=== PATIENT | male | born 1980 | race Hispanic/Latino ===

== ENCOUNTER 2018-03-26 20:36 | Inpatient (IN) | payer BC ==
[~2018-03-26] VITALS: Ht 185.4 cm; Wt 136.1 kg
[2018-03-26] MEDS ORDERED: KETOROLAC TROMETHAMINE 30 MG/ML VIAL IV STA (20:57)
[2018-03-26] MEDS ORDERED: PANTOPRAZOLE 40 MG 10ML VIAL IV STA (20:57)
[2018-03-26] MEDS ORDERED: DICYCLOMINE HCL 20 MG/2 ML VIAL IM ONE (21:00)
[2018-03-26] MEDS ORDERED: ONDANSETRON HCL 4 MG ORAL DISINTEGRATING TAB PO ONE (21:00)
[2018-03-26 21:19] LABS: BASOPHILS % 0.4 % (0.0-1.0); EOSINOPHILS % 0.4 % (0.0-6.0); HEMATOCRIT 46.1 % (38.2-49.6); LYMPHOCYTES % 18.7 % (18.0-39.1); MEAN CORPUSCULAR HEMOGLOBIN 30.4 pg (28-32); MEAN CORPUSCULAR HGB CONC 34.7 g/dL (31-35); MEAN CORPUSCULAR VOLUME 87.6 fL (81-99); MONOCYTES # (AUTO) 0.6 (0.2-0.8); MONOCYTES % 5.3 % (4.4-11.3); NEUTROPHILS # (AUTO) 7.8 (2.1-6.9); NEUTROPHILS % 74.9 % (38.7-80.0); PLATELET COUNT 297 x10e3/uL (140-360); RED BLOOD COUNT 5.26 x10e6/uL (4.3-5.7)
[2018-03-26 21:41] LABS: ALANINE AMINOTRANSFERASE 23 IU/L (0-55); ALBUMIN 4.1 g/dL (3.5-5.0); ALKALINE PHOSPHATASE 72 IU/L (40-150); AMYLASE 70 U/L (25-125); ANION GAP 15.8 mmol/L (8-16); BLOOD UREA NITROGEN 11 mg/dL (7-26); BUN/CREATININE RATIO 11 (6-25); CALCIUM 9.7 mg/dL (8.4-10.2); CARBON DIOXIDE 23 mmol/L (22-29); CHLORIDE 105 mmol/L (98-107); CREATINE KINASE 94 IU/L (30-200); CREATININE, SERUM 0.96 mg/dL (0.72-1.25); EST GLOMERULAR FILTRATION RATE > 60 ML/MIN (60-); GLUCOSE 145 mg/dL (74-118); LIPASE 15 U/L (8-78); POTASSIUM 3.8 mmol/L (3.5-5.1); SODIUM 140 mmol/L (136-145)
[2018-03-26 22:10] LABS: BILIRUBIN,URINE NEGATIVE (NEGATIVE); CLARITY,URINE CLEAR (CLEAR); COLOR,URINE YELLOW (YELLOW); KETONES,URINE NEGATIVE (NEGATIVE); LEUKOCYTE ESTERASE ,URINE NEGATIVE (NEGATIVE); NITRITE,URINE NEGATIVE (NEGATIVE); PROTEIN,URINE DIPSTICK NEGATIVE (NEGATIVE); URINE UROBILINOGEN 0.2 mg/dL (0.2 - 1)
[2018-03-26 22:21] LABS: RBC,URINE 0-5 /HPF (0-5)
[2018-03-26 22:22] LABS: BACTERIA,URINE RARE /HPF; EPITHELIAL CELLS,URINE FEW /LPF; MUCUS,URINE FEW (RARE)
--- NOTE | 2018-03-26 22:33 | Diagnostic Imaging Report ---
EXAM: US GALLBLADDER DATE: 03/26/2018 12:00 AM INDICATION: , Right upper quadrant pain COMPARISON: None TECHNIQUE: Transverse and longitudinal yousif scale and color doppler sonographic images of the upper abdomen were obtained. FINDINGS: Overall study is degraded by poor visualization due to overlying bowel gas and body habitus. LIVER 17.8 cm in the right midclavicular line. Increased echogenicity, normal contour, no masses. GALLBLADDER Mildly distended containing multiple mobile gallstones with gallbladder wall thickening, 0.4 cm. No pericholecystic fluid. Negative sonographic Drake's sign. BILE DUCTS No intra nor extra-hepatic biliary dilation. Common bile duct measures 0.6 cm PANCREAS: Not well-visualized. RIGHT KIDNEY: 11.5 cm Echogenicity: Normal Collecting System: No hydronephrosis Stones: None Cyst/Mass: None VESSELS: Aorta: Not well-visualized Inferior Vena Cava: Not well-visualized Main Portal Vein: 1.3 cm, with hepatopetal flow. FREE FLUID: None IMPRESSION: Overall poor visualization. 1. Cholelithiasis with mild gallbladder wall thickening, but without pericholecystic fluid or Drake's sign. Findings are indeterminate for acute cholecystitis. If there is ongoing clinical concern, consider HIDA. 2. Hepatic steatosis. Signed by: Dr Winnie Cyr MD on 03/26/2018 10:29 PM
--- NOTE | 2018-03-26 22:37 | Diagnostic Imaging Report ---
CHEST SINGLE (PORTABLE), 03/26/2018 8:56 PM Technique: CHEST SINGLE (PORTABLE) Comparison: None available. Clinical history: Chest pain Findings: See Impression Impression: 1. Mildly enlarged cardiac silhouette, accentuated by portable technique. 2. Interstitial prominence likely artifact of technique. No consolidation. 3. No effusion or pneumothorax. Signed by: Dr Winnie Cyr MD on 03/26/2018 10:33 PM
[2018-03-26] MEDS ORDERED: HYDROMORPHONE 1MG/1ML INJ IV STA (23:54)
[2018-03-27] VITALS (8 sets, daily range): BP systolic 136–168; BP diastolic 72–118
[2018-03-27] MEDS ORDERED: HYDROMORPHONE 2MG/ML INJ IV ONE ×2 (00:30→01:30)
[2018-03-27] MEDS ORDERED: HYDRALAZINE HCL 20 MG/ML VIAL IV STA ×2 (01:15→02:16)
[2018-03-27] MEDS ORDERED: PIPER-TAZ 3.375 GM 50 ML IV STA (02:17)
[2018-03-27] MEDS ORDERED: SODIUM CHLORIDE 0.9% 1000ML 1,000 ML IV SCH (02:30)
[2018-03-27] MEDS ORDERED: SODIUM CHLORIDE 0.9% 1000ML 1,000 ML IV ONE (03:00)
[2018-03-27] MEDS ORDERED: CLONIDINE HCL 0.2 MG/24 HR 1 EA PATCH ONE (03:14)
[2018-03-27] MEDS ORDERED: CLONIDINE HCL 0.2 MG/24 HR 1 EA PATCH TOP ONE (03:15)
--- OUTSIDE RECORDS SUMMARY | 2018-03-27 04:29 | XMS REPORT ---
Author Author [facility] Address Unknown Phone Unavailable Care Team Providers Care Strategic Marketing Manager Name Role Phone PATTY PERALES Unavailable Unavailable Problems This patient has no known problems. Allergies, Adverse Reactions, Alerts This patient has no known allergies or adverse reactions. Medications This patient has no known medications. Encounters Start Date/Time End Date/Time Encounter Type Admission Type Attending [facility] Facility Care Department Encounter ID 2017-04-04 12:44:31 Inpatient [facility] [id number] 2017-04-03 08:49:59 Inpatient [facility] [id number] 2017-04-03 06:27:16 Inpatient [facility] [id number] 2017-04-03 04:36:18 Inpatient [facility] [id number] 2017-04-03 02:43:00 Inpatient [facility] [id number] 2017-06-19 00:00:00 2017-06-19 00:00:00 Outpatient [facility] [id number] 2017-05-31 00:00:00 2017-05-31 00:00:00 Outpatient [facility] [id number] 2017-05-03 14:30:07 2017-05-03 14:30:07 Outpatient [facility] [id number] 2017-05-03 12:43:22 2017-05-03 12:43:22 Outpatient [facility] [id number] 2017-04-14 00:00:00 2017-04-14 00:00:00 Outpatient [facility] [id number] 2017-04-10 09:47:49 2017-04-10 09:47:49 Outpatient [facility] [id number] 2017-04-03 03:14:15 2017-04-03 03:14:15 Emergency [facility] [id number] 2017-04-03 02:56:37 2017-04-03 02:56:37 Emergency [facility] [id number] 2017-04-03 02:55:40 2017-04-03 02:55:40 Emergency [facility] [id number] 2017-04-03 02:45:40 2017-04-03 02:45:40 Emergency [facility] [id number] Results Test Description Test Time Test Comments Text Results Atomic Results Result Comments CHEST SINGLE (PORTABLE) [place] [address] Patient Name: EZEQUIEL PARADA MR #: [id number] : 1980 Age/Sex: 37/M Req #: [id number] Adm Physician: Ordered by: PATTY PERALES MD Report #: [id number] Location: ER Room/Bed: Procedure: [id number] DX/CHEST SINGLE (PORTABLE) Exam Date: 03/26/18 Exam Time: 2156 REPORT STATUS: Signed CHEST SINGLE ( PORTABLE), 03/26/2018 8:56 PM Technique: CHEST SINGLE (PORTABLE) Comparison : None available. Clinical history: Chest pain Findings: See Impression Impression: 1. Mildly enlarged cardiac silhouette, accentuated by portable technique. 2. Interstitial prominence likely artifact of technique. No consolidation. 3. No effusion or pneumothorax. Signed by : Dr Lauro Cyr MD on 03/26/2018 10:33 PM Dictated By: LAURO CYR MD 32 Transcribed By: TREVOR on 03/26/182232 COPY TO: PATTY PERALES MD US GALLBLADDER [place] [address] Patient Name: EZEQUIEL PARADA MR #: [id number] : 1980 Age/Sex: 37/M Req #: [id number] Adm Physician: Ordered by: PATTY PERALES MD Report #: [id number] Location: ER Room/Bed: Procedure: [id number] US/US GALLBLADDER Exam Date: Exam Time: REPORT STATUS: Signed EXAM: US GALLBLADDER DATE: 03/26/2018 12:00 AM INDICATION: , Right upper quadrant pain COMPARISON: None TECHNIQUE: Transverse and longitudinal yousif scale and color doppler sonographic images of the upper abdomen were obtained. FINDINGS: Overall study is degraded by poor visualization due to overlying bowel gas and body habitus. LIVER 17.8 cm in the right midclavicular line. Increased echogenicity, normal contour, no masses. GALLBLADDER Mildly distended containing multiple mobile gallstones with gallbladder wall thickening, 0.4 cm. No pericholecystic fluid. Negative sonographic Drake's sign. BILE DUCTS No intra nor extra-hepatic biliary dilation. Common bile duct measures 0.6 cm PANCREAS: Not well-visualized. RIGHT KIDNEY: 11.5 cm Echogenicity: Normal Collecting System: No hydronephrosis Stones: None Cyst/Mass: None VESSELS: Aorta: Not well-visualized Inferior Vena Cava: Not well- visualized Main Portal Vein: 1.3 cm, with hepatopetal flow. FREE FLUID: None IMPRESSION: Overall poor visualization. 1. Cholelithiasis with mild gallbladder wall thickening, but without pericholecystic fluid or Drake' s sign. Findings are indeterminate for acute cholecystitis. If there is ongoing clinical concern, consider HIDA. 2. Hepatic steatosis. Signed by : Dr Lauro Cyr MD on 03/26/2018 10:29 PM Dictated By: LAURO CYR MD 28 Transcribed By: TREVOR on 03/26/182228 COPY TO: PATTY PERALES MD
[2018-03-27] MEDS ORDERED: HYDROMORPHONE 1MG/1ML INJ IV PRN (04:30)
[2018-03-27] MEDS ORDERED: ONDANSETRON HCL 4 MG ORAL DISINTEGRATING TAB PO PRN (04:30)
[2018-03-27] MEDS: SODIUM CHLORIDE 0.9% 1000ML 1,000 ML IV SCH ×2 (05:47→13:41)
[2018-03-27] MEDS ORDERED: PIPER-TAZ 3.375 GM 3.375 GM/100 ML BAG IV SCH (06:00)
[2018-03-27] MEDS ORDERED: MORPHINE SULFATE 5 MG/ML VIAL IV PRN (06:15)
[2018-03-27] MEDS ORDERED: MORPHINE SULFATE 2 MG/ML SYR IV PRN (06:30)
[2018-03-27] MEDS: HYDRALAZINE HCL 20 MG/ML VIAL IV PRN ×2 (08:32→18:13)
[2018-03-27] MEDS ORDERED: METOPROLOL TARTRATE INJ 1 MG/ML VIAL IV PRN (09:00)
[2018-03-27] MEDS ORDERED: METOPROLOL TARTRATE INJ 1 MG/ML VIAL ONE (09:05)
[2018-03-27 09:35] LABS: CREATINE KINASE 52 IU/L (30-200)
[2018-03-27] MEDS: METOPROLOL TARTRATE INJ 1 MG/ML VIAL IV PRN ×3 (09:35→18:22)
[2018-03-27] MEDS ORDERED: LORAZEPAM INJ 2 MG/ML VIAL IV PRN (09:45)
--- NOTE | 2018-03-27 10:08 | History and Physical ---
CHIEF COMPLAINT: Right upper quadrant abdominal pain associated with nausea and vomiting. HISTORY: The patient is a very pleasant 37-year-old male usually healthy, but for the past month or so he was having abdominal pain more so on the right and epigastric area. The patient's pain was off and on, but much improved at times. He did not . For the past few days, it was much worse with right upper quadrant pain. Patient came to the emergency room for evaluation. Gallbladder ultrasound showed cholelithiasis with gallbladder wall thickening. The patient also has Drake's sign with palpitation with pain. The patient is otherwise stable at this time. PAST MEDICAL HISTORY: Noncontributory. PAST SURGICAL HISTORY: Noncontributory. SOCIAL HISTORY: Patient does smoke. He is a social drinker. No recreational drugs. ALLERGIES: HYDROMORPHONE. HOME MEDICATIONS: None. PHYSICAL EXAMINATION VITAL SIGNS: Temperature is 98, blood pressure 199/126, pulse rate 56-102, respirations 18. GENERAL: The patient is not in acute distress. He is having pain. HEENT: Normocephalic and atraumatic. NECK: Supple grossly. PULMONARY: Diminished breath sounds. CARDIOVASCULAR: Regular rate and rhythm with tachycardia. ABDOMEN: Tenderness in the right upper quadrant with some guarding. EXTREMITIES: No cyanosis or edema. NEUROLOGICAL: No gross focal deficit. LABORATORY: Sodium 140, potassium 3.8, chloride 105, bicarb 23, BUN 11, creatinine 0.9, glucose is 145. Alkaline phosphatase 72, AST is 28, ALT 23, alkaline phosphatase 72. Urinalysis unremarkable. WBC is 10.4, hemoglobin 15, hematocrit 46, and platelets 297,000. IMPRESSION: Abdominal pain, right upper quadrant pain with nausea and vomiting. The patient has an abnormal gallbladder ultrasound. Could be secondary to cholecystitis. PLAN: Consultation with Dr. Cabezas. Consultation with Dr. Weston Sanchez. Continue with IV antibiotics. Pain control. IV fluids. N.p.o. except for possible medication if needed. Antiemetics. The patient is otherwise stable at this time. The patient is admitted for treatment. Please review the medication orders. Job#: [id number] OK
[2018-03-27] MEDS: MORPHINE SULFATE 2 MG/ML SYR IV PRN ×4 (12:00→21:52)
--- NOTE | 2018-03-27 12:31 | Diagnostic Imaging Report ---
PROCEDURE: MRI ABDOMEN/MRCP WITHOUT CONTRAST TECHNIQUE: Axial T1 in and out of phase, axial T2 fat sat, coronal, T2 with and without fat-sat, axial DWI, and ADC MR images of the abdomen were performed. No intravenous contrast was administered. Heavily T2-weighted MRCP images were also performed, including thick and thin slab ASSETT, 3-D breath hold FRFSE and 3-D reconstructions. COMPARISON: [facility], , US GALLBLADDER, 03/26/2018, 21:37. INDICATIONS: Abdomen pain FINDINGS: LACK OF GADOLINIUM DECREASES SENSITIVITY FOR DETECTION OF INTRA-ABDOMINAL PATHOLOGY. LOWER THORAX: Mild dependent atelectasis in the right lower lobe. LIVER: Normal hepatic size and contour. No hepatic signal abnormality. No focal T2 hyperintense lesions. BILIARY: No intra-or extrahepatic biliary ductal dilation. The common bile duct is visualized with at the birgit hepatis and pancreatic head, with normal caliber, measuring 0.4 cm. The proximal portion of the common bile duct is not visualized. Visualized portions show luminal contour, and tapering to the ampulla, without intraluminal filling defects or strictures. Increased T2 signal at the birgit hepatis surrounding the proximal portion of the common bile duct and proximal portion of right and left bile ducts, likely representing edema. Moderate gallbladder wall thickening, which measures approximately 0.6 cm. Multiple T2 hypointense stones are noted in the gallbladder lumen. Mild pericholecystic fluid. PANCREAS: No mass or ductal dilatation. SPLEEN: No splenomegaly. ADRENALS: No nodules. KIDNEYS: No hydronephrosis or mass in the imaged portion of the kidneys. PERITONEUM / RETROPERITONEUM: Trace free fluid surrounding the inferior tip of the right hepatic lobe (series 10, image 17, and series 9, image 35). LYMPH NODES: No upper abdominal lymphadenopathy. VESSELS: Normal flow voids are identified. BONES AND SOFT TISSUES: No abnormal bone marrow signal. IMPRESSION: 1. Cholelithiasis, with gallbladder wall thickening, pericholecystic fluid and trace adjacent ascites. This may reflect acute cholecystitis, in the appropriate clinical setting. 2. No evidence of choledocholithiasis in the visualized portions of the common bile duct. Although the proximal portion of the common bile duct is not visualized secondary to surrounding edema, no intra-or extrahepatic biliary ductal dilation is noted to suggest an obstructing stone. Terrance Guerin M.D. Dictated by: Terrance Guerin M.D. on 03/27/2018 at 12:32 Electronically approved by: Terrance Guerin M.D. on 03/27/2018 at 12:32
[2018-03-27] MEDS: KETOROLAC TROMETHAMINE 30 MG/ML VIAL IV PRN ×2 (13:45→19:50)
[2018-03-27 16:42] LABS: CREATINE KINASE 40 IU/L (30-200)
[2018-03-27] MEDS ORDERED: ACETAMINOPHEN 1000 MG/100 ML IV PRN (18:45)
[2018-03-27] MEDS: PIPER-TAZ 3.375 GM 100 ML IV SCH (21:09)
[2018-03-28] VITALS (7 sets, daily range): BP systolic 113–164; BP diastolic 55–98
[2018-03-28] MEDS: MORPHINE SULFATE 2 MG/ML SYR IV PRN ×5 (03:36→18:15)
[2018-03-28] MEDS: PIPER-TAZ 3.375 GM 100 ML IV SCH ×3 (04:30→19:38)
[2018-03-28 06:16] LABS: BASOPHILS # (AUTO) 0.1 (0.0-0.1); BASOPHILS % 0.2 % (0.0-1.0); EOSINOPHILS % 0.1 % (0.0-6.0); HEMATOCRIT 43.9 % (38.2-49.6); HEMOGLOBIN 14.8 g/dL (14.0-18.0); LYMPHOCYTES # (AUTO) 1.5 (1.0-3.2); LYMPHOCYTES % 6.6 % (18.0-39.1); MEAN CORPUSCULAR HEMOGLOBIN 30.3 pg (28-32); MEAN CORPUSCULAR HGB CONC 33.7 g/dL (31-35); MEAN CORPUSCULAR VOLUME 89.8 fL (81-99); MONOCYTES # (AUTO) 1.9 (0.2-0.8); MONOCYTES % 8.2 % (4.4-11.3); NEUTROPHILS % 84.3 % (38.7-80.0); PLATELET COUNT 229 x10e3/uL (140-360); RED BLOOD COUNT 4.89 x10e6/uL (4.3-5.7); RED CELL DISTRIBUTION WIDTH 13.6 % (11.7-14.4)
[2018-03-28 06:42] LABS: ALANINE AMINOTRANSFERASE 14 IU/L (0-55); ALBUMIN/GLOBULIN RATIO 0.8 (0.8-2.0); ALKALINE PHOSPHATASE 51 IU/L (40-150); AMYLASE 47 U/L (25-125); BLOOD UREA NITROGEN 12 mg/dL (7-26); BUN/CREATININE RATIO 13 (6-25); CALCIUM 9.1 mg/dL (8.4-10.2); CARBON DIOXIDE 27 mmol/L (22-29); CHLORIDE 103 mmol/L (98-107); CREATINE KINASE 38 IU/L (30-200); CREATININE, SERUM 0.96 mg/dL (0.72-1.25); EST GLOMERULAR FILTRATION RATE > 60 ML/MIN (60-); GLUCOSE 101 mg/dL (74-118); LIPASE 18 U/L (8-78); SODIUM 138 mmol/L (136-145)
[2018-03-28 10:40] LABS: ANISOCYTOSIS SLIGHT; LYMPHOCYTES % (MANUAL) 9 % (19-48); MONOCYTES % (MANUAL) 6 % (3.4-9.0); NEUTROPHILS % (MANUAL) 83 % (40-74); PLATELET ESTIMATE ADEQUATE; PLATELET MORPHOLOGY COMMENT NORMAL; RBC MORPHOLOGY COMMENT NORMAL
[2018-03-28] MEDS ORDERED: BUPIVACAINE 0.25%/EPI 30ML SDV INJ ONE (10:50)
--- NOTE | 2018-03-28 13:01 | Consultation ---
DATE OF CONSULTATION: March 27, 2018 HISTORY: This is a 37-year-old male, who presented to the hospital because of abdominal pain mainly in the epigastric, right upper quadrant area, radiating towards the back. Patient's workup so far revealed that he has gallstone by ultrasound and liver enzymes normal. He also has fatty liver on the ultrasound. He did have an MRCP earlier, which again showed gallstones, but the normal bile ducts, and his liver enzymes, however, are normal. He has a history of heavy alcohol use. His other medical problem is significant for otherwise is unremarkable. ALLERGIES: NONE. SOCIAL HISTORY: Again, heavy alcohol use. FAMILY HISTORY: Noncontributory. REVIEW OF SYSTEMS: Denies any chest pain. Denies any . Denies any shortness of breath. Denies any dysphagia or odynophagia. Denies any dysuria, hematuria or syncopal episode. EXAM GENERAL: The patient is awake, alert, appears to be stable and not in any acute distress at this point. VITAL SIGNS: Afebrile currently with stable vital signs. HEENT: Normocephalic, atraumatic. Sclerae anicteric. NECK: Supple. HEART: Sounds regular. ABDOMEN: Soft. There is tenderness significantly in the epigastric and right upper quadrant area. There is no rebound or mass. EXTREMITIES: No cyanosis, clubbing. LAB VALUE: CMP is okay. CBC okay. Ultrasound showed gallstones with fatty liver. MRCP is negative. ASSESSMENT: Abdominal pain likely secondary to gallstones. There are no signs of any stone in the bile duct. normal. History of alcohol use. RECOMMENDATIONS: Follow liver tests. Patient will need to have cholecystectomy and recommend alcohol intake. Job#: [id number] CQ cc:MD DAIANA KING MD
[2018-03-28] MEDS ORDERED: PROMETHAZINE HCL (IM) 25 MG/ML VIAL IV PRN (13:30)
--- NOTE | 2018-03-28 14:01 | Operative Report ---
DATE OF PROCEDURE: March 28, 2018 PREOPERATIVE DIAGNOSIS: Acute cholecystitis and cholelithiasis. POSTOPERATIVE DIAGNOSIS: Acute gangrenous cholecystitis and cholelithiasis. OPERATION PERFORMED: Laparoscopic cholecystectomy. ROAD MACHINERY INSPECTOR: Dr. Gray Cabezas. ANESTHESIA: General endotracheal. COMPLICATIONS: None. ESTIMATED BLOOD LOSS: Minimal. DESCRIPTION OF PROCEDURE: With the patient lying in bed in the supine position under good general endotracheal anesthesia, the abdomen was prepped with Betadine solution and draped in the usual manner. A Veress needle was introduced into the umbilicus. A pneumoperitoneum was established without any difficulty. An 11 mm trocar was placed into the umbilicus, and a 10 mm video laparoscope was placed into the intra-abdominal cavity. Under direct vision, three 5 mm trocars were placed in the right subcostal region and an extra 5 mm trocar was placed in the left upper abdomen to be able to retract the redundant omentum and transverse colon. Laparoscopy at this point revealed the gallbladder to be totally covered up with omental adhesions. Once the omentum was peeled away from the gallbladder, it quickly became evident that this was an acute gallbladder where the top of the gallbladder already had some gangrenous changes. The gallbladder was thick-walled and distended and had to be decompressed with a needle in order to be able to grasp it. After this was done, all of the adhesions at the neck of the gallbladder were then slowly and carefully taken down. The peritoneum overlying the neck of the gallbladder was then opened, and the cystic duct was identified. The cystic duct was followed to its junction with the common duct. The cystic duct was then circumferentially dissected away from the common duct, doubly clipped and divided. The cystic artery had an anterior and a posterior branch, and both of these were individually clipped and divided. The gallbladder was then slowly and carefully taken off of the liver bed using the cautery scissors. There was a lot of thickening, edema of the gallbladder bed with some gangrenous changes at the top of the gallbladder. Nonetheless, the gallbladder was totally removed from the liver bed and perfect hemostasis was ascertained. The gallbladder was placed into a bag and removed through the umbilicus after enlarging the incision to allow for the passage of the rather inflamed gallbladder. After this was done, video laparoscopy was then again carried out. All of the excess fluid was aspirated. Perfect hemostasis was ascertained. The pneumoperitoneum was evacuated, and all the trocars were removed under direct vision. The midline fascia at the umbilicus was then closed with a [id number] of 0 Vicryl. All layers were infiltrated on the way out with solution of 1/4 percent Marcaine. Subcutaneous tissue was approximated with 3-0 Vicryl, and the skin was closed with subcuticular 5-0 Vicryl. Benzoin, Steri-Strips and Band-Aids were applied. The sponge, lap and needle count was correct. The patient tolerated the procedure well and returned to the recovery room in stable condition. Job#: [id number] EV
[2018-03-28] MEDS: PANTOPRAZOLE 40 MG 10ML VIAL IV SCH (15:16)
[2018-03-28] MEDS: DEXTROSE 5%/LACTATED RINGERS 1,000 ML IV SCH ×2 (15:16→21:19)
[2018-03-28] MEDS ORDERED: LIDOCAINE HCL 2% LOCAL INJ 5 ML SDV VIAL INJ ONE (18:20)
[2018-03-28] MEDS ORDERED: ROCURONIUM BROMIDE 10 MG/ML 5ML VIAL ONE (18:20)
[2018-03-28] MEDS ORDERED: ONDANSETRON HCL INJ 2 MG/ML VIAL ONE (18:20)
[2018-03-28] MEDS ORDERED: ACETAMINOPHEN 1000 MG/100 ML IV ONE (18:20)
[2018-03-28] MEDS ORDERED: DEXAMETHASONE SOD PHOS INJ 4 MG/ML VIAL ONE (18:20)
[2018-03-28] MEDS ORDERED: NEOSTIGMINE 5 MG/5ML SYR ONE (18:20)
[2018-03-28] MEDS ORDERED: SEVOFLURANE INHAL SOLN 250 ML PEN BTL ONE (18:20)
[2018-03-28] MEDS ORDERED: GLYCOPYRROLATE INJ 1MG/ 5 ML SYR ONE (18:20)
[2018-03-28] MEDS ORDERED: PROPOFOL IV EMULSION 10 MG/ML 20 ML VIAL ONE (18:20)
[2018-03-28] MEDS ORDERED: MIDAZOLAM HCL 2 MG/2 ML VIAL ONE (18:54)
[2018-03-28] MEDS ORDERED: FENTANYL CITRATE/PF 100MCG/2 ML INJ ONE (18:54)
[2018-03-28] MEDS: HYDROCODONE/APAP 7.5MG-325MG 1 EA TAB PO PRN (21:34)
[2018-03-29] MEDS: PIPER-TAZ 3.375 GM 100 ML IV SCH ×3 (03:14→19:39)
[2018-03-29] MEDS: HYDROCODONE/APAP 7.5MG-325MG 1 EA TAB PO PRN ×3 (03:15→19:15)
[2018-03-29 04:00] VITALS: BP 121/58
[2018-03-29 07:16] LABS: BASOPHILS % 0.2 % (0.0-1.0); EOSINOPHILS # (AUTO) 0.1 (0.0-0.4); EOSINOPHILS % 0.5 % (0.0-6.0); HEMATOCRIT 38.6 % (38.2-49.6); HEMOGLOBIN 12.9 g/dL (14.0-18.0); LYMPHOCYTES # (AUTO) 1.7 (1.0-3.2); LYMPHOCYTES % 13.1 % (18.0-39.1); MEAN CORPUSCULAR HEMOGLOBIN 30.3 pg (28-32); MEAN CORPUSCULAR HGB CONC 33.4 g/dL (31-35); MEAN CORPUSCULAR VOLUME 90.6 fL (81-99); MONOCYTES # (AUTO) 0.9 (0.2-0.8); MONOCYTES % 6.8 % (4.4-11.3); NEUTROPHILS # (AUTO) 10.1 (2.1-6.9); PLATELET COUNT 217 x10e3/uL (140-360); RED BLOOD COUNT 4.26 x10e6/uL (4.3-5.7); RED CELL DISTRIBUTION WIDTH 13.5 % (11.7-14.4)
[2018-03-29 08:00] VITALS: BP 100/71
[2018-03-29 08:51] VITALS: BP 100/71
[2018-03-29] MEDS: DEXTROSE 5%/LACTATED RINGERS 1,000 ML IV SCH ×2 (09:15→16:13)
[2018-03-29] MEDS: MORPHINE SULFATE 2 MG/ML SYR IV PRN ×3 (10:15→22:23)
[2018-03-29 11:59] VITALS: BP 103/52
[2018-03-29] MEDS: PANTOPRAZOLE 40 MG 10ML VIAL IV SCH (12:43)
[2018-03-29 16:06] VITALS: BP 126/74
[2018-03-29 19:57] VITALS: BP 136/72
[2018-03-30] VITALS: BP 135/64
[2018-03-30 02:30] VITALS: BP 135/64
[2018-03-30] MEDS: PIPER-TAZ 3.375 GM 100 ML IV SCH (03:55)
[2018-03-30] MEDS: DEXTROSE 5%/LACTATED RINGERS 1,000 ML IV SCH (03:55)
[2018-03-30] MEDS: HYDROCODONE/APAP 7.5MG-325MG 1 EA TAB PO PRN ×2 (03:56→10:48)
[2018-03-30 04:00] VITALS: BP 138/66
[2018-03-30 07:08] LABS: BASOPHILS # (AUTO) 0.1 (0.0-0.1); BASOPHILS % 0.6 % (0.0-1.0); EOSINOPHILS # (AUTO) 0.2 (0.0-0.4); EOSINOPHILS % 2.7 % (0.0-6.0); HEMATOCRIT 37.7 % (38.2-49.6); HEMOGLOBIN 12.5 g/dL (14.0-18.0); LYMPHOCYTES # (AUTO) 2.8 (1.0-3.2); MEAN CORPUSCULAR HEMOGLOBIN 29.8 pg (28-32); MEAN CORPUSCULAR HGB CONC 33.2 g/dL (31-35); MONOCYTES # (AUTO) 0.6 (0.2-0.8); MONOCYTES % 7.5 % (4.4-11.3); NEUTROPHILS # (AUTO) 4.1 (2.1-6.9); NEUTROPHILS % 53.1 % (38.7-80.0); PLATELET COUNT 221 x10e3/uL (140-360); RED BLOOD COUNT 4.19 x10e6/uL (4.3-5.7); RED CELL DISTRIBUTION WIDTH 13.3 % (11.7-14.4)
[2018-03-30 07:30] LABS: ANION GAP 10.6 mmol/L (8-16); BLOOD UREA NITROGEN 13 mg/dL (7-26); BUN/CREATININE RATIO 15 (6-25); CALCIUM 8.8 mg/dL (8.4-10.2); CARBON DIOXIDE 30 mmol/L (22-29); CHLORIDE 100 mmol/L (98-107); CREATININE, SERUM 0.86 mg/dL (0.72-1.25); EST GLOMERULAR FILTRATION RATE > 60 ML/MIN (60-); GLUCOSE 99 mg/dL (74-118); POTASSIUM 3.6 mmol/L (3.5-5.1); SODIUM 137 mmol/L (136-145)
[2018-03-30 08:14] VITALS: BP 136/66
[2018-03-30 10:09] VITALS: BP 136/66
--- NOTE | 2018-03-30 10:22 | Discharge Summary ---
PAINTER TOUCH UP: Dr. Weston Sanchez and Dr. Matt Cabezas. FINAL DIAGNOSES 1. Acute cholecystitis, status post laparoscopic cholecystectomy. 2. Hypertensive urgency secondary to pain and infection. 3. Status post sepsis without shock. 4. Leukocytosis and fever, resolved. SUMMARY: Patient is a 37-year-old male who came in very sick. The patient had acute cholecystitis associated with sepsis. Blood pressure was elevated due to stress, pain and infection. He came in with a WBC of 22.6. WBC 7.7 now and normalized. He was dehydrated with hemoglobin and hematocrit of 16 and 46.1. On chemistry panel, the patient is stable. He had dehydration, sepsis and infection. Patient was very distressed. Multiple blood pressure medications were given. The patient is doing much better now. He is stable. He is tolerating oral intake. The patient will be discharged home today. He will continue with medications as follows: 1. Celebrex 200 mg 1 tablet b.i.d. p.r.n. for pain. 2. Zofran ODT 4 mg sublingual q.4 h. p.r.n. for nausea and vomiting. 3. Questran 1 package q.8 h. p.r.n. for diarrhea. 4. Levaquin 500 mg daily for 5 days. The patient is instructed to have a bland diet. The patient will follow up next week with Dr. Matt Cabezas for postop care. He may follow up with me in approximately 1-2 weeks if needed. Job#: [id number] MERON
[2018-03-30] MEDS ORDERED: CELEBREX100 MG PO (11:32)
[2018-03-30] MEDS ORDERED: ZOFRAN ODT4 MG (11:32)
[2018-03-30] MEDS ORDERED: QUESTRAN PACKET4 GM PO (11:33)
[2018-03-30] MEDS ORDERED: LEVAQUIN500 MG PO (11:33)
== END 2018-03-30 12:02 | disposition home or self-care (01) | DRG 854 ==
LOC: ER 20:41 → ERHOLD 03-27 04:18 → IMCU 03-27 11:23 → MED/SURG3 03-28 20:54
PROVIDERS: ADMIT Internal Medicine; ATTEND Internal Medicine
PROC: 0FT44ZZ Resection of Gallbladder, Percutaneous Endoscopic Approach (ICD-10-PCS; principal; 2018-03-28 11:30)
DX: A41.9 Sepsis, unspecified organism (principal); K80.00 Calculus of gallbladder with acute cholecystitis without obstruction; E86.0 Dehydration; I16.0 Hypertensive urgency; K76.0 Fatty (change of) liver, not elsewhere classified
CPT/HCPCS: 36415; 71045; 74181; 76705; 80048; 80053; 81001; 82150; 82550; 82553; 83690; 84484; 85025; 88304; 93005; 96367; 96375; 96376; 99285; C1766; J0360; J0500; J1100; J1885; J2001; J2060; J2250; J2270; J2405; J2543; J7030; J7120

== ENCOUNTER 2020-08-31 09:52 | Inpatient (IN) | payer SELFPAY ==
[2020-08-31] VITALS (11 sets, daily range): BP systolic 137–175; BP diastolic 81–108
[~2020-08-31] VITALS: Ht 180.3 cm; Wt 89.8 kg
[~2020-08-31 09:52] MED LIST: CELEBREX100 MG PO; LEVAQUIN500 MG PO; QUESTRAN PACKET4 GM PO; ZOFRAN ODT4 MG
--- OUTSIDE RECORDS SUMMARY | 2020-08-31 10:14 | XMS REPORT | Continuity of Care Document ---
Author Author Amanda Cruz [employer] EZEQUIEL Agustin Organization [employer] Address Unknown Phone Unavailable Care Team Providers Care Accounts Payable Processor Name Role Phone [employer] Unavailable Un available Problems Problem Status Onset Date Classification Date Reported Comments Source Bimalleolar fracture of lower leg 12/04/2019 12/06/2019 [facility] Medications Medication Details Route Status Patient Instructions Ordering Provider Order Date Source Dilaudid 0.5 mg = 0.5 mL, Inje ction, IV Push, q5min PRN for pain mild-moderate (1-6), order duration: 2 doses, first dose 12/04/19 9:30:00 INSULATION NOZZLEMAN, stop date Limited # of times Inactive 12/04/2019 [facility] promethazine IVPB 12.5 mg, IV Piggyback, Once PRN for nausea/vomiting, infuse over 15 minutes, first dose 12/04/19 9:19:00 INSULATION NOZZLEMAN Inactive 12/04/2019 [facility] Demerol HCl 12.5 mg = 0.5 mL, Injection, IV Push, q5min PRN for Pain Mild (1-3), order duration: 4 doses, first dose 12/04/19 9:19:00 INSULATION NOZZLEMAN, stop date Limited # of times Inactive 12/04/2019 [facility] Morphine 1 mg = 0.1 mL, Inject ion, IV Push, q5min PRN for Pain Moderate (4-6), order duration: 5 doses, first dose 12/04/19 9:19:00 INSULATION NOZZLEMAN, stop date Limited # of times Inactive 12/04/2019 [facility] Misc Medication 800 mL, Soln-I V, IV, Once, first dose 12/04/19 9:14:00 INSULATION NOZZLEMAN, stop date 12/04/19 9:14:00 INSULATION NOZZLEMAN Inactive 12/04/2019 [facility] morphine 4 mg = 2 mL, Injectio n, IV, Once, first dose 12/04/19 9:12:00 INSULATION NOZZLEMAN, stop date 12/04/19 9:12:00 INSULATION NOZZLEMAN Inactive 12/04/2019 [facility] ketorolac 30 mg = 1 mL, Inject ion, IV, Once, first dose 12/04/19 8:44:00 INSULATION NOZZLEMAN, stop date 12/04/19 8:44:00 INSULATION NOZZLEMAN Inactive 12/04/2019 [facility] ondansetron 4 mg = 2 mL, Injec tion, IV, Once, first dose 12/04/19 8:13:00 INSULATION NOZZLEMAN, stop date 12/04/19 8:13:00 INSULATION NOZZLEMAN Inactive 12/04/2019 [facility] dexamethasone 4 mg = 1 mL, Inj ection, IV, Once, first dose 12/04/19 8:11:00 INSULATION NOZZLEMAN, stop date 12/04/19 8:11:00 INSULATION NOZZLEMAN Inactive 12/04/2019 [facility] fentaNYL 100 mcg = 2 mL, Injec tion, IV, Once, first dose 12/04/19 7:35:00 INSULATION NOZZLEMAN, stop date 12/04/19 7:35:00 INSULATION NOZZLEMAN Inactive 12/04/2019 [facility] rocuronium 50 mg = 5 mL, Injec tion, IV, Once, first dose 12/04/19 7:10:00 INSULATION NOZZLEMAN, stop date 12/04/19 7:10:00 INSULATION NOZZLEMAN Inactive 12/04/2019 [facility] propofol 200 mg = 20 mL, Emuls ion, IV, Once, first dose 12/04/19 7:10:00 INSULATION NOZZLEMAN, stop date 12/04/19 7:10:00 INSULATION NOZZLEMAN Inactive 12/04/2019 [facility] fentaNYL 100 mcg = 2 mL, Injec tion, IV, Once, first dose 12/04/19 7:10:00 INSULATION NOZZLEMAN, stop date 12/04/19 7:10:00 INSULATION NOZZLEMAN Inactive 12/04/2019 [facility] lidocaine 40 mg = 2 mL, Inject ion, IV, Once, first dose 12/04/19 7:10:00 INSULATION NOZZLEMAN, stop date 12/04/19 7:10:00 INSULATION NOZZLEMAN Inactive 12/04/2019 [facility] Acetaminophen 325 MG / Hydrocodone Radha trate 10 MG Oral Tablet [[place] 10/325] 1 tabs, Oral, q4hr, PRN for pain, # 30 t abs, 0 Refill(s), Pharmacy: [facility]/pharmacy #[id number], ankle surgery Active 12/04/2019 [facility] ceFAZolin 2 gm, Powder-Inj, IV , Once, first dose 12/04/19 7:05:00 INSULATION NOZZLEMAN, stop date 12/04/19 7:05:00 INSULATION NOZZLEMAN Inactive 12/04/2019 [facility] ropivacaine 150 mg = 30 mL, In jection, Nerve Block, Once, first dose 12/04/19 6:42:00 INSULATION NOZZLEMAN, stop date 12/04/19 6:42:00 INSULATION NOZZLEMAN Inactive 12/04/2019 [facility] fentaNYL 100 mcg = 2 mL, Injec tion, IV, Once, first dose 12/04/19 6:42:00 INSULATION NOZZLEMAN, stop date 12/04/19 6:42:00 INSULATION NOZZLEMAN Inactive 12/04/2019 [facility] midazolam 2 mg = 2 mL, Injecti on, IV, Once, first dose 12/04/19 6:42:00 INSULATION NOZZLEMAN, stop date 12/04/19 6:42:00 INSULATION NOZZLEMAN Inactive 12/04/2019 [facility] Cefazolin 2 gm, IV Piggyback, Once, infuse over 30 minutes, first dose 12/04/19 6:00:00 INSULATION NOZZLEMAN, stop date 12/04/19 6:00:00 INSULATION NOZZLEMAN, Prophylaxis Inactive 12/04/2019 [facility] Pain Ease topical spray 1 spra ys, [place], TOP, Once, first dose 12/04/19 6:00:00 INSULATION NOZZLEMAN, stop date 12/04/19 6:00:00 INSULATION NOZZLEMAN, Apply topically for 4 - 10 seconds from a distance of 3 - 7 inches from the procedure site Inactive 12/04/2019 [facility] LR 1,000 mL 1,000 mL, IV, 100 mL/hr, start date 12/04/19 5:52:00 INSULATION NOZZLEMAN, For Adults Inactive 12/04/2019 [facility] Allergies, Adverse Reactions, Alerts Substance Category Reaction Severity Reaction type Status Date Reported Comments Source No Known Medication Allergies Assertion Drug aller gy [facility] Immunizations No Data Provided for This Section Results No Data Provided for This Section Pathology Reports No Data Provided for This Section Diagnostic Reports No Data Provided for This Section Consultation Notes No Data Provided for This Section Discharge Summaries No Data Provided for This Section History and Physicals No Data Provided for This Section Vital Signs Vital Sign Value Date Comments Source Respitory Rate 17 12/04/2019 [facility] Heart Rate 93 12/04/2019 [facility] Systolic (mm Hg) 161 12/04/2019 [facility] Diastolic (mm Hg) 79 12/04/2019 [facility] Respitory Rate 17 12/04/2019 [facility] Heart Rate 94 12/04/2019 [facility] Systolic (mm Hg) 156 12/04/2019 [facility] Diastolic (mm Hg) 79 12/04/2019 [facility] Heart Rate 97 12/04/2019 [facility] Respitory Rate 17 12/04/2019 [facility] Systolic (mm Hg) 159 12/04/2019 [facility] Diastolic (mm Hg) 75 12/04/2019 [facility] Temperature Oral (F) 36.3 Larisa 12/04/2019 [facility] Peripheral Pulse Rate 93 12/04/2019 [facility] Peripheral Pulse Rate 92 12/04/2019 [facility] Temperature Oral (F) 36.2 Larisa 12/04/2019 [facility] Peripheral Pulse Rate 91 12/04/2019 [facility] Weight Measured 142 12/04/2019 [facility] Height 180 cm 12/04/2019 [facility] Encounters Location Location Details Encounter Type Encounter Number Reason For Visit Attending Provider ADM Date DC Date Status Source KW KW Ou tpatient [id number] Shan sarmiento 12/04/2019 12/04/2019 [facility] [id number] Shan Perez 12/04/2019 12/04/2019 [facility] Procedures Procedure Code Date Perfomer Comments Source right eye stitches 11/20/2016 [facility] Assessment and Plan No Data Provided for This Section Plan of Care No Data Provided for This Section Social History Social History Date Source Social History TypeResponse Smoking Status 4 or less cigarettes(less than 1/4 pack) /day in last 30 days; Type: Cigarettes entered on: 11/28/19 11/28/2019 [facility] Family History No Data Provided for This Section Advance Directives No Data Provided for This Section Functional Status No Data Provided for This Section
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
--- OUTSIDE RECORDS SUMMARY | 2020-08-31 10:15 | XMS REPORT | Continuity of Care Document ---
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 [facility] CenterUrine Vfrskaxs0521-39-12 22:22:00* Test Item Value Reference Range Interpretation Comments Urine Bacteria (test code = 36270-9) RARE NONE [facility] CenterUrine Epithelial Ywult4720-29-39 22:22:00 * Test Item Value Reference Range Interpretation Comments Urine Epithelial Cells (test code = 95850-7) FEW NONE [facility] CenterUrine Giznn9948-16-19 22:22:00* Test Item Value Reference Range Interpretation Comments Urine Mucus (test code = 8247-9) FEW RARE H [facility] CenterUrine Zkspy8749-48-39 22:10:00* Test Item Value Reference Range Interpretation Comments Urine Color (test code = 5778-6) YELLOW YELLOW [facility] CenterUrine Hiixzdh4182-73-40 22:10:00* Test Item Value Reference Range Interpretation Comments Urine Clarity (test code = 17288-7) CLEAR CLEAR [facility] CenterUrine Specific Qnfzhzj9523-53-39 22:10:00 * Test Item Value Reference Range Interpretation Comments Urine Specific [place] (test code = 5811-5) 1.030 1.010-1.02 5 H [facility] CenterUrine vV4390-67-80 22:10:00* Test Item Value Reference Range Interpretation Comments Urine pH (test code = 68327-5) 5 5-7 [facility] CenterUrine Leukocyte Aqxjdbli6754-78-74 22:10:00* Test Item Value Reference Range Interpretation Comments Urine Leukocyte Esterase (test code = 5799-2) NEGATIVE NEGATIVE [facility] CenterUrine Ctbjgcy1907-97-61 22:10:00* Test Item Value Reference Range Interpretation Comments Urine Nitrite (test code = 05193-1) NEGATIVE NEGATIVE [facility] CenterUrine Ssyheiq3918-57-22 22:10:00* Test Item Value Reference Range Interpretation Comments Urine Protein (test code = 5804-0) NEGATIVE NEGATIVE [facility] CenterUrine Glucose (UA)2018-03-26 22:10:00* Test Item Value Reference Range Interpretation Comments Urine Glucose (UA) (test code = 2349-9) NEGATIVE NEGATIVE [facility] CenterUrine Ehbtlrf3541-36-81 22:10:00* Test Item Value Reference Range Interpretation Comments Urine Ketones (test code = 99155-4) NEGATIVE NEGATIVE [facility] CenterUrine Koyqtlomgfkx4762-51-31 22:10:00* Test Item Value Reference Range Interpretation Comments Urine Urobilinogen (test code = 75969-8) 0.2 0.2-1 [facility] CenterUrine Lhjtwobxd4759-60-50 22:10:00* Test Item Value Reference Range Interpretation Comments Urine Bilirubin (test code = 1978-6) NEGATIVE NEGATIVE [facility] CenterUrine Fhvyw8915-72-60 22:10:00* Test Item Value Reference Range Interpretation Comments Urine Blood (test code = 59433-2) NEGATIVE NEGATIVE [facility] CenterMRI MRCP WO [place] [address] Patient Name: EZEQUIEL PARADA MR #: [id number] : 1980 Age/Sex: 37/M Req #: [id number] Adm Physician: MARY MCCLURE MD Ordered by: MARY MCCLURE MD Report #: [id number] Location: [facility] Room/Bed: [place] [address] Procedure: [id number] MRI/MRI MRCP WO Exam Date: Exam Time: REPORT STATUS: Sig karina PROCEDURE: MRI ABDOMEN/MRCP WITHOUT CONTRAST TECHNIQUE: Axial T1 in and out of phase, axial T2 fat sat, coronal, T2 with and without fat-sat, ax ial DWI, and ADC MR images of the abdomen were performed. No intravenous cont rast was administered. Heavily T2-weighted MRCP images were also performed, in cluding thick and thin slab ASSETT, 3-D breath hold FRFSE and 3-D reconstruct ions. COMPARISON: Patients [facility], US, US GALLBLADDER, 03/26/2018, 21:37. INDICATIONS: Abdomen pain FINDINGS: LACK OF GADOLINIUM D ECREASES SENSITIVITY FOR DETECTION OF INTRA-ABDOMINAL PATHOLOGY. LOWER THORAX: Mild dependent atelectasis in the right lower lobe. LIVER: Normal hepa tic size and contour. No hepatic signal abnormality. No focal T2 hyperintense lesions. BILIARY: No intra-or extrahepatic biliary ductal dilation. The commo n bile duct is visualized with at the birgit hepatis and pancreatic head, w ith normal caliber, measuring 0.4 cm. The proximal portion of the common bile duct is not visualized. Visualized portions show luminal contour, and taperi ng to the ampulla, without intraluminal filling defects or strictures. Incr eased T2 signal at the birgit hepatis surrounding the proximal portion of the common bile duct and proximal portion of right and left bile ducts, likely re presenting edema. Moderate gallbladder wall thickening, which measures approxi mately 0.6 cm. Multiple T2 hypointense stones are noted in the gallbladder anders men. Mild pericholecystic fluid. PANCREAS: No mass or ductal dilatation. SPLEEN: No splenomegaly. ADRENALS: No nodules. KIDNEYS: No hydronephrosis o r mass in the imaged portion of the kidneys. PERITONEUM / RETROPERITONEUM: Trace free fluid surrounding the inferior tip of the right hepatic lobe (seri es 10, image 17, and series 9, image 35). LYMPH NODES: No upper abdominal l ymphadenopathy. VESSELS: Normal flow voids are identified. BONES AND SOFT TI SSUES: No abnormal bone marrow signal. IMPRESSION: 1. Cholelithiasi s, with gallbladder wall thickening, pericholecystic fluid and trace adjacent ascites. This may reflect acute cholecystitis, in the appropriate clinical s etting. 2. No evidence of choledocholithiasis in the visualized portions of th e common bile duct. Although the proximal portion of the common bile duct is not visualized secondary to surrounding edema, no intra-or extrahepatic bi liary ductal dilation is noted to suggest an obstructing stone. Terrance Loya M.D. Dictated by: Terrance Loya M.D. on 8 at 12:32 Electronically approved by: Terrance Loya M.D. on 018 at 12:32 Dictated By: TERRANCE LOYA MD Electronically Si gned By: TERRANCE LOYA MD on 03/27/18 1232 Transcribed By: MU on 03/27/18 1 232 COPY TO: MARY MCCLURE MD CHEST SINGLE (PORTABLE) [place] [address] Patient Name: EZEQUIEL PARADA MR #: [id number] : 1980 Age/Sex: 37/M Req #: [id number] Adm Physician: Ordered by: PATTY PERALES MD Report #: [id number] Location: ER Room/ Bed: Procedure: [id number] DX/CHEST SINGLE (PORTABLE) Exam Date: 03/26/18 Exam Time: 2156 REPORT STA TUS: Signed CHEST SINGLE (PORTABLE), 03/26/2018 8:56 PM Technique: CHEST S ANGIE (PORTABLE) Comparison: None available. Clinical history: Chest pain Findings: See Impression Impression: 1. Mildly enlarged cardiac silh ouette, accentuated by portable technique. 2. Interstitial prominence likely a rtifact of technique. No consolidation. 3. No effusion or pneumothorax. S igned by: Dr Lauro Park MD on 03/26/2018 10:33 PM Dictated By: LAURO PARK MD 2233 Trans cribed By: TREVOR on 03/26/182232 COPY TO: PATTY PERALES MD US GALLBLADDER [place] [address] Patient Name: EZEQUIEL PARADA MR #: [id number] : 1980 Age/Sex: 37/M Req #: [id number] Adm Physician: Ordered by: PATTY PERALES MD Report #: [id number] Location: ER Room/Bed: Procedure: [id number] US/US GALLBLADDER Exam Bryant e: Exam Time: REPORT STATUS: Signed EXAM: US GALLBLADDER DATE: 03/26/2018 12:00 AM INDICATION: , Right upper quad rant pain COMPARISON: None TECHNIQUE: Transverse and longitudinal yousif scal e and color doppler sonographic images of the upper abdomen were obtained. FINDINGS: Overall study is degraded by poor visualization due to overlying bowel gas and body habitus. LIVER 17.8 cm in the right midclavicular line. Increased echogenicity, normal contour, no masses. GALLBLADDER Mi ldly distended containing multiple mobile gallstones with gallbladder wall thi ckening, 0.4 cm. No pericholecystic fluid. Negative sonographic Drake's sign. BILE DUCTS No intra nor extra-hepatic biliary dilation. Common bile du ct measures 0.6 cm PANCREAS: Not well-visualized. RIGHT KIDNEY: 11.5 c m Echogenicity: Normal Collecting System: No hydronephrosis Stones: None Cyst/Mass: None VESSELS: Aorta: Not well-visualized Inferior Vena Ca va: Not well-visualized Main Portal Vein: 1.3 cm, with hepatopetal flow. FREE FLUID: None IMPRESSION: Overall poor visualization. 1. Cholelithia sis with mild gallbladder wall thickening, but without pericholecystic fluid o r Drake's sign. Findings are indeterminate for acute cholecystitis. If there is ongoing clinical concern, consider HIDA. 2. Hepatic steatosis. Signed by: Dr Lauor Park MD on 03/26/2018 10:29 PM Dictated By: LAURO oLpez MD 28 Transcribed By: TREVOR on 03/26/182228 COPY TO: PATTY PERALES MD
[2020-08-31] MEDS ORDERED: ENOXAPARIN SOD INJ 40 MG/0.4 ML SYR SC ONE (10:30)
[2020-08-31 10:43] LABS: BASOPHILS # (AUTO) 0.1 (0.0-0.1); BASOPHILS % 0.3 % (0.0-1.0); EOSINOPHILS # (AUTO) 0.1 (0.0-0.4); EOSINOPHILS % 0.8 % (0.0-6.0); HEMATOCRIT 43.1 % (38.2-49.6); HEMOGLOBIN 14.3 g/dL (14.0-18.0); LYMPHOCYTES # (AUTO) 1.8 (1.0-3.2); LYMPHOCYTES % 11.9 % (18.0-39.1); MEAN CORPUSCULAR HEMOGLOBIN 29.3 pg (28-32); MEAN CORPUSCULAR HGB CONC 33.2 g/dL (31-35); MEAN CORPUSCULAR VOLUME 88.3 fL (81-99); MONOCYTES # (AUTO) 1.3 (0.2-0.8); MONOCYTES % 8.8 % (4.4-11.3); NEUTROPHILS # (AUTO) 11.7 (2.1-6.9); NEUTROPHILS % 77.6 % (38.7-80.0); PLATELET COUNT 337 x10e3/uL (140-360); RED BLOOD COUNT 4.88 x10e6/uL (4.3-5.7); RED CELL DISTRIBUTION WIDTH 13.8 % (11.7-14.4)
--- NOTE | 2020-08-31 10:47 | Diagnostic Imaging Report ---
Chest, 1 view, 08/31/2020. History: Shortness of breath. Comparison: 03/26/2018. Findings: The cardiomediastinal silhouette and pulmonary vasculature are mildly prominent. Rounded pleural-based opacities are noted along the right mid and lower chest as well as the right apex, partially obscuring the right heart border and hemidiaphragm. There is left lung is clear. There are no acute osseous or soft tissue abnormalities. Impression: Right-sided consolidation with rounded pleural base opacities may represent pneumonia with loculated effusions but underlying mass cannot be excluded. Signed by: Luis Miguel Claudio on 08/31/2020 10:43 AM
[2020-08-31 11:05] LABS: ALANINE AMINOTRANSFERASE 28 IU/L (0-55); ALBUMIN 2.6 g/dL (3.5-5.0); ALBUMIN/GLOBULIN RATIO 0.5 (0.8-2.0); ALKALINE PHOSPHATASE 106 IU/L (40-150); ANION GAP 17.5 mmol/L (8-16); BLOOD UREA NITROGEN 9 mg/dL (7-26); BUN/CREATININE RATIO 10 (6-25); CALCIUM 9.2 mg/dL (8.4-10.2); CARBON DIOXIDE 24 mmol/L (22-29); CHLORIDE 99 mmol/L (98-107); CREATINE KINASE 42 IU/L (30-200); CREATININE, SERUM 0.92 mg/dL (0.72-1.25); EST GLOMERULAR FILTRATION RATE > 60 ML/MIN (60-); GLUCOSE 263 mg/dL (74-118); POTASSIUM 3.5 mmol/L (3.5-5.1); SODIUM 137 mmol/L (136-145)
--- NOTE | 2020-08-31 11:20 | Diagnostic Imaging Report ---
CT Chest with contrast (PE protocol) History: Shortness of breath Comparison: none Technique: serial axial imaging was performed following up to 100cc of non ionic iodinated intravenous contrast as per departmental protocol. Multiplanar, and maximum intensity projection images are reconstructed and reviewed. This CT examination is performed using one or more of the following dose reduction techniques: Automated exposure control, adjustment of the mA and /or kV according to patient size, and/or use of iterative reconstruction technique. Findings: No mediastinal or hilar lymphadenopathy. Normal size heart. No pericardial effusion. No thoracic aortic aneurysm or dissection. No pulmonary arterial filling defect. Patent central airways. Moderate right pleural effusion, with multiple areas of loculation. The lungs demonstrate nonspecific areas of mild peripheral groundglass density, with consolidative changes at the right lung base. No significant findings in the partially imaged abdomen. No aggressive osseous lesion. Impression: 1. No evidence pulmonary embolus. 2. Moderate right pleural effusion, with multiple areas of loculation. This is concerning for either a malignant pleural effusion or empyema. 3. The lungs demonstrate nonspecific areas of mild peripheral groundglass density, with consolidative appearance at the right lung base. Clinical correlation is required to exclude a multifocal infectious process. Signed by: Ephraim Adkins MD on 08/31/2020 11:17 AM
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
[2020-08-31] MEDS ORDERED: CEFTRIAXONE SOD 1 GRAM/0.9% SOD CHL 50ML BAG IV SCH (11:30)
[2020-08-31] MEDS ORDERED: VANCOMYCIN HCL 1GM/NS 250 ML BAG IV ONE (11:30)
[2020-08-31] MEDS ORDERED: AZITHROMYCIN 500MG/SOD CHL 0.9% 250ML BAG IV SCH (11:30)
[2020-08-31] MEDS ORDERED: LACTATED RINGER'S 1,000 ML INJ SCH (11:45)
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
[2020-08-31] MEDS: ALBUTEROL SULF 0.083% NEB SOLN 3 ML NEB NEB SCH ×4 (12:05→23:25)
[2020-08-31] MEDS: CEFTRIAXONE SOD 1 GM/NS 50 ML 50 ML IV SCH (12:22)
[2020-08-31] MEDS: IRBESARTAN 150 MG TAB PO SCH (12:23)
[2020-08-31] MEDS ORDERED: VANCOMYCIN 1GM/NS 250 ML 250 ML IV ONE (12:30)
[2020-08-31] MEDS: AZITHROMYCIN 500MG/NS 250 ML 250 ML IV SCH (12:36)
[2020-08-31] MEDS ORDERED: IOPAMIDOL 370 MG/ML 200 ML INFUS..BTL INJ ONE (13:21)
[2020-08-31] MEDS ORDERED: SODIUM CHLORIDE 0.9% 50ML 50 ML ONE (13:21)
--- NOTE | 2020-08-31 13:34 | Consultation ---
DATE OF CONSULTATION: Pulmonary Critical Care consultation CHIEF COMPLAINT: Pain and fevers. HISTORY OF PRESENT ILLNESS: The patient is 39-year-old man. He had no prior medical problems until this year. In early July, approximately one month ago, he had COVID-19 infection. He was sick for a few days and then recovered. Over the past several days, he has noticed pain in the right side of his chest as well as recurrent fevers and some cough. He came to the emergency department and was found to have a loculated right pleural effusion. He had a subsequent CT scan of the chest that showed a loculated right pleural effusion concerning for possible empyema. He also had hypertension and required fluids and antihypertensive medications. PAST SURGICAL HISTORY: 1. Left ankle surgery. 2. Cholecystectomy. PAST MEDICAL HISTORY: 1. COVID-19 as known above. 2. The patient denies any prior history of hypertension. 3. The patient denies any prior history of asthma or respiratory problems. ALLERGIES: NO KNOWN DRUG ALLERGIES. FAMILY HISTORY: Noncontributory. REVIEW OF SYSTEMS: The patient had some fevers at home. He has no headache. He does have some cough. He has no abdominal pain. There is no nausea or vomiting. He does have some right-sided chest discomfort and pain. He has no leg edema. PHYSICAL EXAMINATION: VITAL SIGNS: Blood pressure is 165/114. Pulse is 119 and the pulse oximetry is 95% on room air. Respiratory rate is 26. HEENT: No facial swelling or erythema. LYMPHATIC: No submandibular, cervical, or supraclavicular adenopathy. CARDIAC: Regular rate and rhythm. Normal S1, S2. LUNGS: Auscultation of lungs reveal decreased breath sounds at the right side. ABDOMEN: Soft, nontender. There is no rebound or guarding. EXTREMITIES: No leg edema or calf tenderness. There is no cyanosis or clubbing. SKIN: No rashes. NEUROLOGICAL: No focal abnormalities. LABORATORY DATA: The albumin is 2.6, and the other electrolytes are within normal limits. White blood cell count is 15.1, hemoglobin is 14.3. The platelet count is 337,000. IMPRESSION: 1. Pneumonia with complicated parapneumonic effusion and sepsis, present on admission. 2. Decelerated hypertension. 3. Leukocytosis. 4. Recent coronavirus disease-19 infection. 5. Severe obesity. PLAN: 1. The patient will receive intravenous fluids. 2. He has been loera-cultured and lactic acid has been ordered. 3. Begin antibiotics for possible empyema and community associated pneumonia. 4. Consult Thoracic Surgery for possible decortication. 5. Begin antihypertensive regimen. Nehemiah Mcgovern MD LM/MODL /[id number]
--- NOTE | 2020-08-31 14:38 | NUR ---
Patient is a transfer from emergency room. patient c/o shortness of breath on arrival to the unit. patient is tachypnea with respiration in 30s, on 2L of oxygen with sating in 100%. Dr Mcgovern aware of patient condition. Patient is alert, oriented and able to answer questions correctly.
[2020-08-31] MEDS: LABETALOL HCL 5 MG/ML 20ML VIAL IV PRN (16:23)
[2020-08-31] MEDS ORDERED: ENOXAPARIN INJ 80 MG/0.8 ML SYR SC SCH (17:00)
[2020-08-31] MEDS ORDERED: ENOXAPARIN SOD INJ 40 MG/0.4 ML SYR SC SCH (17:00)
[2020-08-31] MEDS: MORPHINE SULFATE 2 MG/ML SYR 1ML IV PRN ×2 (17:36→22:44)
[2020-08-31] MEDS: ACETAMINOPHEN 325 MG TAB PO PRN (19:56)
--- NOTE | 2020-08-31 21:30 | NUR ---
Patient moved to [facility]
[2020-08-31] MEDS: ZOLPIDEM TARTRATE 5 MG TAB PO PRN (22:44)
[2020-09-01] VITALS (7 sets, daily range): BP systolic 142–166; BP diastolic 84–100
[2020-09-01] MEDS ORDERED: VANCOMYCIN 1GM/NS 250 ML 250 ML IV SCH (00:30)
[2020-09-01] MEDS: ALBUTEROL SULF 0.083% NEB SOLN 3 ML NEB NEB SCH ×6 (03:10→23:10)
[2020-09-01] MEDS: MORPHINE SULFATE 2 MG/ML SYR 1ML IV PRN ×6 (04:08→21:47)
[2020-09-01 07:36] LABS: ALANINE AMINOTRANSFERASE 22 IU/L (0-55); ALKALINE PHOSPHATASE 84 IU/L (40-150); ANION GAP 16.6 mmol/L (8-16); BLOOD UREA NITROGEN 8 mg/dL (7-26); BUN/CREATININE RATIO 11 (6-25); CALCIUM 8.5 mg/dL (8.4-10.2); CARBON DIOXIDE 24 mmol/L (22-29); CHLORIDE 100 mmol/L (98-107); CREATININE, SERUM 0.73 mg/dL (0.72-1.25); EST GLOMERULAR FILTRATION RATE > 60 ML/MIN (60-); GLUCOSE 138 mg/dL (74-118); POTASSIUM 3.6 mmol/L (3.5-5.1); SODIUM 137 mmol/L (136-145)
[2020-09-01 07:38] LABS: BASOPHILS # (AUTO) 0.1 (0.0-0.1); BASOPHILS % 0.5 % (0.0-1.0); EOSINOPHILS # (AUTO) 0.1 (0.0-0.4); EOSINOPHILS % 1.1 % (0.0-6.0); HEMATOCRIT 38.7 % (38.2-49.6); HEMOGLOBIN 12.8 g/dL (14.0-18.0); LYMPHOCYTES # (AUTO) 2.2 (1.0-3.2); LYMPHOCYTES % 16.7 % (18.0-39.1); MEAN CORPUSCULAR HEMOGLOBIN 29.7 pg (28-32); MEAN CORPUSCULAR HGB CONC 33.1 g/dL (31-35); MEAN CORPUSCULAR VOLUME 89.8 fL (81-99); MONOCYTES # (AUTO) 1.5 (0.2-0.8); MONOCYTES % 11.7 % (4.4-11.3); NEUTROPHILS % 69.3 % (38.7-80.0); PLATELET COUNT 276 x10e3/uL (140-360); RED BLOOD COUNT 4.31 x10e6/uL (4.3-5.7); RED CELL DISTRIBUTION WIDTH 14.1 % (11.7-14.4)
[2020-09-01 07:47] LABS: ALBUMIN 2.3 g/dL (3.5-5.0); ALBUMIN/GLOBULIN RATIO 0.5 (0.8-2.0)
[2020-09-01] MEDS ORDERED: SODIUM CHLORIDE 0.9% 250ML 250 ML ONE (08:55)
[2020-09-01] MEDS: VANCOMYCIN 1GM/NS 250 ML 250 ML IV SCH ×2 (09:06→20:09)
[2020-09-01] MEDS: CEFTRIAXONE SOD 1 GM/NS 50 ML 50 ML IV SCH (12:23)
[2020-09-01] MEDS: AZITHROMYCIN 500MG/NS 250 ML 250 ML IV SCH (12:23)
[2020-09-01] MEDS: LABETALOL HCL 5 MG/ML 20ML VIAL IV PRN (14:42)
[2020-09-01] MEDS ORDERED: HYDROMORPHONE 1MG/1ML INJ IV ONE ×2 (15:58→18:40)
[2020-09-01] MEDS ORDERED: LIDOCAINE HCL 2% LOCAL 20 ML VIAL ONE (18:11)
[2020-09-01] MEDS ORDERED: HYDROMORPHONE 2MG/ML 2 MG/ML ML ONE (18:33)
--- NOTE | 2020-09-01 18:55 | Progress Note ---
DATE: Pulmonary Critical Care Progress Note SUBJECTIVE: The patient reports discomfort and pain despite receiving some morphine. He also has some tachycardia and low-grade fevers. PHYSICAL EXAMINATION: VITAL SIGNS: Blood pressure is 158/84, saturation is 96% on 3 L and the respiratory rate is in the low 20s. Heart rate is 110 and T-max is 99.4. HEENT: Shows no facial swelling or erythema. CARDIAC: Reveals regular rate and rhythm with normal S1 and S2. LUNGS: Auscultation of lungs reveal decreased breath sounds on the right side. ABDOMEN: Soft, nontender. There is no rebound or guarding. EXTREMITIES: Shows no leg edema or calf tenderness. LABORATORY DATA: White blood cell count is 12.9, hemoglobin is 12.8. The platelet count is 267. The BUN to creatinine ratio is 8 to 0.73. The other electrolytes are within normal limits and the albumin is 2.3. IMPRESSION: 1. Resolving coronavirus disease-2019 and viral pneumonia. 2. Empyema related to bacterial pneumonia with sepsis present on admission. 3. Accelerated hypertension. 4. Obesity. PLAN: 1. The patient is awaiting evaluation by thoracic surgery. Thoracic surgery is considering a chest tube versus possible video assisted thoracoscopy. 2. Continue current antibiotics. 3. Pain control. 4. Continue current antihypertensive regimen. Nehemiah Mcgovern MD [facility]/MODL /[id number]
--- NOTE | 2020-09-01 19:22 | Diagnostic Imaging Report ---
EXAMINATION: CHEST XRAY POST PROCEDURE INDICATION: ^chest tube placement COMPARISON: 08/31/2020 FINDINGS: TUBES and LINES: Right chest tube with subcutaneous emphysema. Small kink in the right chest tube over the lateral right chest. LUNGS: Scattered densities throughout the lungs more pronounced on the right with consolidation at the peripheral right lung and right lung base. PLEURA: Previously seen right pleural effusion slightly smaller. HEART AND MEDIASTINUM: Prominent heart size and pulmonary vasculature. BONES AND SOFT TISSUES: No acute osseous lesion. Soft tissues are unremarkable. UPPER ABDOMEN: No free air under the diaphragm. IMPRESSION: Right chest tube with subcutaneous emphysema. Small kink in the right chest tube over the lateral right chest. Right-sided consolidation with rounded pleural base opacities may represent pneumonia with loculated effusions but underlying mass cannot be excluded. Signed by: Dr. Lexx Alcantar M.D. on 09/01/2020 7:18 PM
[2020-09-01] MEDS: ZOLPIDEM TARTRATE 5 MG TAB PO PRN (20:09)
[2020-09-01] MEDS: ACETAMINOPHEN 325 MG TAB PO PRN (20:10)
[2020-09-02] VITALS (7 sets, daily range): BP systolic 137–167; BP diastolic 82–107
[2020-09-02] MEDS: MORPHINE SULFATE 2 MG/ML SYR 1ML IV PRN ×3 (00:58→08:19)
--- NOTE | 2020-09-02 02:51 | Operative Report ---
DATE OF PROCEDURE: 09/01/2020 SURGEON: Tato Krishna MD PREOPERATIVE DIAGNOSIS: Loculated right pleural effusion, history of COVID-19. POSTOPERATIVE DIAGNOSIS: Loculated right pleural effusion, history of COVID-19. PROCEDURE: Insertion chest tube. INDICATIONS: This is a 39-year-old male with a loculated right pleural effusion. Chest tube drainage was recommended. Prior to procedure, I described the procedure to the patient and his . I told him that the risks of the procedure including , bleeding, infection, persistent infection, possible need for further surgery, pneumonia, tracheostomy, mechanical ventilation, ICU care, etc. They each stated that they understood, no further questions, and wanted to proceed. FINDINGS: Uneventful placement of right pleural tube. On digital exploration, the effusion seemed to be loculated. Chest x-ray after the procedure showed the chest tube to be acceptably well positioned toward the apex. DESCRIPTION OF PROCEDURE: Procedure #1: Procedure was performed at the bedside after obtaining consent and discussing this with the patient and his . Under sterile conditions with local anesthesia, a #36 [place] chest tube was inserted via the right midaxillary line. Digital exploration revealed that the lung was not free from the chest wall and that there were multiple adhesions and loculations. The chest tube was placed toward the apex. The drainage was somewhat foul smelling. Chest tube was hooked up to the Pleur-evac. The patient was given lidocaine as local anesthesia. Sterile dressings were applied. Tato Krishna MD [facility]/MODL /[id number]
--- NOTE | 2020-09-02 03:01 | Consultation ---
DATE OF CONSULTATION: 09/01/2020 REASON FOR CONSULTATION: Loculated right pleural effusion, history of COVID-19; requested by Dr. Kevin Mcgovern. Shoe Repairer Apprentice is Dr. Liang La. HISTORY OF PRESENT ILLNESS: I saw and evaluated this patient on September 01, 2020. He is a 39-year-old man, who had no prior medical problems until catching a COVID at his workplace. Apparently, two of his coworkers were older and both . He was sick for few days, but did not require hospitalization. He had a negative COVID test after approximately two weeks. He has been feeling somewhat short of breath over the last several days. The pain developed in the right side of his chest as well as recurrent fevers and a nonproductive cough. The pain increased and he came to the emergency room. Chest x-ray showed a loculated right pleural effusion. CT scan of the chest confirmed these findings and suggested a possible empyema. The patient has been having low-grade fevers and chills. Intravenous antibiotics have been started. Further recommendations are requested. PAST MEDICAL HISTORY: Unremarkable. MEDICATIONS: At home prior to the COVID, none. ALLERGIES: NONE KNOWN. FAMILY HISTORY: Negative for pneumonia or tuberculosis exposure. SOCIAL HISTORY: Negative for smoking or alcohol. REVIEW OF SYSTEMS: GENERAL: Positive for fatigue and malaise. NEUROLOGIC: Negative for focal weakness in extremities or dysarthria. HEENT: Negative for decreased vision or decreased hearing. CARDIAC: Negative for angina or palpitations. PULMONARY: Positive for chest pain and cough as above. GI: No diarrhea or constipation. : Negative for hematuria or dysuria. ENDOCRINE: Negative for polyuria or polydipsia. VASCULAR: Negative for claudication.\ SKIN: Negative for rash or itching. HEMATOLOGIC: Negative for clotting or bleeding. INFECTIOUS: Negative for fevers or sweating. PSYCHIATRIC: Negative for depression. PHYSICAL EXAMINATION: VITAL SIGNS: A large man, weighing 280 pounds and is 5 feet 11 inches. Blood pressure 140/72, pulse 80 and regular, and respirations 16 and unlabored. NECK: Supple and nontender. No JVD. CARDIAC: Shows a regular rate and rhythm. There is a normal S1, S2. There is no S3 or S4. LUNGS: Crackles on the right side with dullness in the bases of the right chest. No dullness on the left. ABDOMEN: Globoid, benign. Good bowel sounds. No hepatosplenomegaly. BACK: No CVA tenderness. No muscular spasm. EXTREMITIES: No cyanosis, clubbing, or edema. VASCULAR: Carotids 2+/2+ bilaterally. No carotid bruits. Radials and femorals, 2+/2+ bilaterally. SKIN: No rashes or nonhealing ulcers. MUSCULOSKELETAL: Full range of motion at all joints. No joint swelling. NEUROLOGIC: Cranial nerves II through XII intact. Sensation intact to light touch and pinprick bilaterally. CHEST: Chest wall is tender on the right along the mid axillary line inferior to the right breast. There is no erythema or fluctuance. LABORATORIES AND IMAGING DATA: Chest x-ray and CT scan are reviewed. There is a loculated right pleural effusion. It does not appear to be free-flowing. White count 12.93, hemoglobin 12.8, hematocrit 38.7, and platelet count 276,000. Sodium 137, potassium 3.6, BUN 8, and creatinine 0.73. Liver function tests are normal. IMPRESSION AND PLAN: Loculated right pleural effusion and possible empyema in the setting of elevated white count and fever. I agree with the need for chest tube drainage. I discussed the procedure with the patient and his . I spoke with the by phone because of Qraved restrictions. I told him the risks of the right pleural chest tube with the bleeding, infection, intrathoracic injury, possible need for subsequent thoracotomy if persistent infection, intrathoracic organ injury, intubation, , etc. The patient and his each stated that they understood, no further questions and wanted to proceed. MD DAYO Ellison/TANIA /[id number]
[2020-09-02] MEDS: ALBUTEROL SULF 0.083% NEB SOLN 3 ML NEB NEB SCH ×4 (03:06→15:00)
[2020-09-02] MEDS: LABETALOL HCL 5 MG/ML 20ML VIAL IV PRN (04:27)
[2020-09-02] MEDS: IRBESARTAN 150 MG TAB PO SCH (08:19)
[2020-09-02] MEDS: VANCOMYCIN 1GM/NS 250 ML 250 ML IV SCH ×2 (08:19→20:34)
[2020-09-02] MEDS ORDERED: MORPHINE SULFATE 2 MG/ML SYR 1ML IV STA (10:34)
[2020-09-02] MEDS ORDERED: LACTATED RINGER'S 1,000 ML INJ ONE (11:00)
[2020-09-02] MEDS: AZITHROMYCIN 500MG/NS 250 ML 250 ML IV SCH (11:48)
[2020-09-02] MEDS: CEFTRIAXONE SOD 1 GM/NS 50 ML 50 ML IV SCH (11:48)
--- NOTE | 2020-09-02 11:54 | Progress Note ---
DATE: SUBJECTIVE: The patient had a chest tube placed last night by thoracic surgery. There is minimal drainage of his loculated pleural effusion. He complains of persistent pain that has not been controlled with morphine or Dilaudid. PHYSICAL EXAMINATION: VITAL SIGNS: Blood pressure is 167/107, and the heart rate is 110-120, saturation is 95% on 2 L, and T-max is 99.5. HEENT: Shows no facial swelling or erythema. LYMPHATIC: Shows no submandibular, cervical, supraclavicular adenopathy. CARDIAC: Reveals regular rate and rhythm. Normal S1, S2. LUNGS: Auscultation of lungs are decreased breath sounds at the right side. There is a chest tube in good position. There is minimal drainage. ABDOMEN: Soft and nontender. There is no rebound or guarding. EXTREMITIES: Shows no leg edema or calf tenderness. There is no cyanosis or clubbing. SKIN: Shows no rashes. NEUROLOGICAL: Shows no focal abnormalities. LABORATORY DATA: White blood cell count is 12.9, hemoglobin is 12.8, and the platelet count is 276. BUN to creatinine ratio is 8 to 0.73. The other electrolytes are within normal limits. The albumin is 2.3. IMPRESSION: 1. Empyema related to bacterial pneumonia with sepsis, present on admission. 2. Resolving COVID-19 infection, viral pneumonia. 3. Accelerated hypertension. 4. Obesity. PLAN: 1. Begin KILN TRANSFER OPERATOR pump for pain control. 2. Additional IV fluids. 3. Continue current antibiotics. 4. Continue current antihypertensive regimen. 5. Thoracic surgery to [facility]. 6. Case discussed with nursing, Dr. Narda La of Internal Medicine and Dr. Krishna of thoracic surgery. Nehemiah Mcgovern MD [facility]/MODL /[id number]
[2020-09-02] MEDS: HYDROMORPHONE 1MG/1ML INJ IV PRN ×3 (12:33→21:20)
[2020-09-02] MEDS: HYDROCODONE/APAP 7.5MG-325MG 1 EA TAB PO PRN ×2 (12:34→18:47)
--- NOTE | 2020-09-02 12:37 | NUR ---
PT CONTINUES TO HAVE ELEVATED PAIN IN RT UPPER CHEST (CHEST TUBE PLACEMENT SITE). CHEST TUBE DRESSING C/D/I. TUBE DRAINING SEROSANGUINEOUS FLUID. RN DISCUSSED CONTINUED PAIN WITH MD MCKEON, PAIN MANAGEMENT WAS CONSULTED AND NEW ORDERS PLACED FOR PAIN MEDICATION. PT WAS GIVEN PO NORCO AND IV DILAUDID. RN WILL CONTINUE TO MONITOR FOR PAIN MANAGEMENT.
[2020-09-02] MEDS: ZOLPIDEM TARTRATE 5 MG TAB PO PRN (20:34)
--- NOTE | 2020-09-02 22:13 | NUR ---
2044 Report called to Ann Marie Greer RN for [facility] 2200 Transported to to Room 6 [facility] B Bed 24 [facility] via ambulance with teletypesetter monitor and O2.
== END 2020-09-02 22:00 | disposition short-term general hospital (02) | DRG 871 ==
LOC: ER 10:12 → ERHOLD 11:55 → ICU 13:58 → IMCU 21:18
PROC: 0W9930Z Drainage of Right Pleural Cavity with Drainage Device, Percutaneous Approach (ICD-10-PCS; principal; 2020-09-01)
DX: A41.9 Sepsis, unspecified organism (principal); J86.9 Pyothorax without fistula; J15.9 Unspecified bacterial pneumonia; U07.1 COVID-19; J91.8 Pleural effusion in other conditions classified elsewhere; R07.9 Chest pain, unspecified; Z86.19 Personal history of other infectious and parasitic diseases; F17.210 Nicotine dependence, cigarettes, uncomplicated; Z72.89 Other problems related to lifestyle; I10 Essential (primary) hypertension; Z90.49 Acquired absence of other specified parts of digestive tract
CPT/HCPCS: 36415; 71045; 71260; 80053; 82550; 82553; 83605; 83880; 84484; 85025; 87040; 93005; 93306; 94640; 99284; J0456; J0696; J1170; J1650; J2001; J2270; J3370; J7050; J7121; Q9967